=== PATIENT | male | born 1965 | race Caucasian/White ===

== ENCOUNTER 2021-11-27 16:06 | Emergency (ER) | payer OTHER ==
[2021-11-27] MEDS ORDERED: Zemuron 100 MG/10 ML IJ ONE (16:07)
[2021-11-27 16:20] VITALS: O2SAT 93
[2021-11-27 16:21] LABS: Lactic Acid 9.9 (0.4-2.0)
[2021-11-27 16:22] LABS: A-aADO2 511; ABG HEMOGLOBIN 15.5; ARTERIAL BLOOD GAS BASE EXCESS -15.8 (-2.0-2.0); ARTERIAL BLOOD GAS FIO2 100 %; ARTERIAL BLOOD GAS PO2 180 mmHg (75-100); ARTERIAL BLOOD GAS pH 7.28 (7.35-7.45); CARBOXYHEMOGLOBIN 1.2 % THgb (0.0-6.9); HCO3- 8.5 (22-28); HGB O2 SAT 97.8 g/dF (94-100); Methhemoglobin 0.9 % (1.4-1.5)
[2021-11-27 16:23] LABS: ABG POTASSIUM 6.2 (3.5-5.1); ABG SITE RIGHT RADIAL; ALLEN TEST OK? YES; ARTERIAL BLOOD GAS PCO2 18 mmHg (35-45)
[2021-11-27] MEDS ORDERED: Sodium Chloride 0.9% 1000 ML 1,000 ML ONE ×5 (16:30→19:54)
[2021-11-27 16:37] LABS: A-aADO2 -96; ABG HEMOGLOBIN 15.3; ARTERIAL BLOOD GAS BASE EXCESS -16.6 (-2.0-2.0); ARTERIAL BLOOD GAS FIO2 21 %; ARTERIAL BLOOD GAS PO2 226 mmHg (75-100); ARTERIAL BLOOD GAS pH 7.28 (7.35-7.45); CARBOXYHEMOGLOBIN 1.2 % THgb (0.0-6.9); Glucose,Critical Care 286 (70-110); HCO3- 7.5 (22-28); Methhemoglobin 0.7 % (1.4-1.5)
[2021-11-27 16:38] LABS: ABG POTASSIUM 6.1 (3.5-5.1); ABG SITE LEFT RADIAL; ALLEN TEST OK? YES; ARTERIAL BLOOD GAS PCO2 16 mmHg (35-45)
--- NOTE | 2021-11-27 16:40 | XRAY ---
Indication: Acute mental status change. Multiple bruising over body. No history available. Multiple contiguous axial images obtained through the chest without contrast. Comparison: None Study is degraded by respiration artifact throughout. Heart is not enlarged. Aorta is normal in course and caliber. [place] subcarinal and smaller left infrahilar calcified nodes. Lungs demonstrate moderate left and small right base effusions with compressive atelectasis. No suspicious pulmonary mass or pneumothorax. Bony thorax intact with moderate degenerative changes throughout the spine. Abdomen reported separately. Impression: 1. Diffuse respiration artifact. 2. Cardiomegaly and bilateral pleural effusions. Rule out cardiac decompensation/CHF. Superimposed pneumonia not completely excluded. 3. Incidental degenerative spondylosis and old granulomatous disease.
--- NOTE | 2021-11-27 16:42 | XRAY ---
Indication: Acute mental status change. Multiple bruising over body. No history available. Multiple contiguous axial images obtained through the head without contrast. Comparison: None Minimal beam artifact from cardiopulmonary technologist hands. Age-appropriate global atrophy. No acute intracranial hemorrhage, abnormal extra-axial fluid collection, or mass effect. Fourth ventricle is midline without hydrocephalus. Iqbal-white matter differentiation preserved. Bony calvarium intact.. Paranasal sinuses and mastoid air cells are clear. Impression: Negative CT head without contrast exam.
--- NOTE | 2021-11-27 16:44 | XRAY ---
Indication: Acute mental status change. Multiple bruising over body. No history available. Multiple contiguous axial images obtained through the cervical spine. Sagittal and coronal reformatted images obtained. Comparison: None Axial images negative for acute fracture, suspicious bony lesions, or spinal canal stenosis. Mild/moderate C5-C7 degenerative endplate spurring and mild/moderate multilevel bilateral degenerative facet hypertrophy right greater than left. Sagittal and coronal reformatted images demonstrates normal alignment. C5-C7 degenerative disc space loss. No acute compression fracture, subluxation, or jumped facet. Normal appearing craniocervical junction. Visualized noncontrasted soft tissues demonstrates minimal left carotid calcifications. CTA head and CT chest reported separately. Impression: 1. C5-C7 degenerative changes. 2. Remaining CT cervical spine is negative.
[2021-11-27] MEDS ORDERED: SUBLIMAZE 100 MCG/2 ML ONE ×2 (16:45→18:02)
--- NOTE | 2021-11-27 16:46 | XRAY ---
Indication: Acute mental status change. Multiple bruising over body. No history available. Multiple contiguous axial images obtained through the abdomen and pelvis without contrast. Comparison: None CT chest reported separately. Beam artifact from patient's arms and respiration artifact throughout. There is mild diffuse anasarca. Noncontrasted stomach and bowel loops appear nonobstructed. Urinary bladder near empty with [place] balloon catheter in situ. No free fluid/air. Incidental bilateral adrenal hypertrophy. Remaining liver, gallbladder, pancreas, spleen, adrenal glands, kidneys, ureters, bladder, and aorta are unremarkable for noncontrast exam. Osseous structures intact with mild degenerative changes throughout the spine. Incompletely visualized bilateral scrotal hydroceles. Impression: 1. Beam artifact and respiration artifact. 2. Diffuse anasarca presumed related to cardiac decompensation/CHF as reported on same day CT chest exam. 3. Incompletely visualized bilateral scrotal hydroceles. 4. Bilateral adrenal hypertrophy. 5. Remaining CT abdomen/pelvis without contrast exam is grossly negative.
[2021-11-27 16:59] LABS: Absolute Neutrophil Ct (ANC) 15.07 x10^3/uL (1.4-6.9); Basophil (Absolute #) 0.02 x10^3/uL (0-0.4); Eosinophil (Absolute #) 0 x10^3/uL (0-0.5); Hematocrit 46.4 % (42-50); Lymphocyte (Absolute #) 0.57 x10^3/uL (1.0-4.6); Lymphocytes % 3.5 % (24.0-44.0); Mean Cell Volume 89.7 fL (78-100); Mean Corpuscular Hgb Concent. 32.3 g/dL (32-36); Monocyte (Absolute #) 0.54 x10^3/uL (0.0-1.3); Monocytes % 3.3 % (0.0-12.0); Neutrophil % 92.7 % (36.0-66.0); Platelet Count 69 x10^3/uL (150-450); Red Blood Count 5.17 x10^6/uL (4.1-5.6); Red Cell Distribution Width 15.5 % (11.5-14.0); White Blood Count 16.3 x10^3/uL (4.0-10.5)
[2021-11-27] MEDS ORDERED: VERSED 5 MG/5 ML ONE (17:00)
[2021-11-27] MEDS ORDERED: Amidate 20 MG/10 ML IV ONE (17:00)
--- NOTE | 2021-11-27 17:02 | XRAY ---
Indication: Endotracheal tube placement. Comparison: None Limited portable chest demonstrates endotracheal tube tip [address] proven cardiomegaly and bilateral effusions/atelectasis left greater than right.
[2021-11-27 17:12] LABS: ACETAMINOPHEN < 10 ug/ml (10-30); ETHYL ALCOHOL < 10 mg/dL (0-10); SALICYLATE 1.8 mg/dL (2-20)
[2021-11-27 17:14] LABS: ALBUMIN 3.1 g/dL (3.5-5.0); ANION GAP 36.4 MEQ/L (5-15); Calcium 6.7 mg/dL (8.4-10.2); Total Protein 5.9 g/dL (6.3-8.2)
[2021-11-27 17:19] LABS: Potassium 5.9 mmol/L (3.5-5.1)
[2021-11-27 17:19] LABS: A-aADO2 157; ABG HEMOGLOBIN 14.6; ABG POTASSIUM 5.7 (3.5-5.1); ABG SITE RIGHT RADIAL; ALLEN TEST OK? YES; ARTERIAL BLD GAS TIDAL VOLUME 550 cc; ARTERIAL BLOOD GAS BASE EXCESS -17.4 (-2.0-2.0); ARTERIAL BLOOD GAS FIO2 60 %; ARTERIAL BLOOD GAS PCO2 20 mmHg (35-45); ARTERIAL BLOOD GAS PO2 246 mmHg (75-100); ARTERIAL BLOOD GAS pH 7.22 (7.35-7.45); CARBOXYHEMOGLOBIN 1.1 % THgb (0.0-6.9); HCO3- 8.2 (22-28); HGB O2 SAT 98.2 g/dF (94-100); Methhemoglobin 0.8 % (1.4-1.5)
[2021-11-27] MEDS ORDERED: Sodium Chloride 100ML MINI-BAG PLUS 100 ML IV ONE (17:32)
[2021-11-27] MEDS ORDERED: Merrem IV ONE (17:32)
[2021-11-27 17:39] LABS: Creatinine 1 7.38 mg/dL (0.66-1.25); EST GLOMERULAR FILTRATION RATE 8.1 ML/MIN
[2021-11-27] MEDS: Merrem 1 GM in Sodium Chloride 100ML MINI-BAG PLUS 100 ML IV ONE (17:39)
[2021-11-27 18:12] LABS: Mucus SLIGHT /HPF (NEGATIVE)
[2021-11-27 18:13] LABS: Appearance CLEAR (CLEAR); Bilirubin NEGATIVE (NEGATIVE); Dipstick done @ ? MAIN LAB; Glucose NEGATIVE (NEGATIVE); Ketones NEGATIVE (NEGATIVE); Nitrite NEGATIVE (NEGATIVE); Protein,Urine Dip 100 (Negative); RBC TRACE-INTACT Ery/ul (0-5); Specific Gravity >=1.030 (1.005-1.025); Urobilinogen 0.2 mg/dL (0-1)
[2021-11-27 18:14] LABS: Urine Cultured Indicated? NO
[2021-11-27 18:19] LABS: Barbiturate,Urine NEGATIVE (NEGATIVE); Benzodiazepine,Urine NEGATIVE (NEGATIVE); Methadone,Urine NEGATIVE (NEGATIVE); Opiate,Urine NEGATIVE (NEGATIVE); PCP,Urine NEGATIVE (NEGATIVE); THC,Urine POSITIVE (NEGATIVE)
[2021-11-27] MEDS ORDERED: VANCOMYCIN 1 GRAM/200 ML BAG 1 GM/200 ML PIGGYBACK IV ONE (18:25)
[2021-11-27] MEDS: VANCOMYCIN 1 GRAM/200 ML BAG 1 GM/200 ML PIGGYBACK IV ONE (18:25)
[2021-11-27 18:26] LABS: INFLUENZA A NEGATIVE (NEGATIVE); INFLUENZA B NEGATIVE (NEGATIVE); RESPIRATORY SYNCTIAL VIRUS NEGATIVE (Negative); SARS-CoV-2 Xpert Express NEGATIVE (NEGATIVE)
[2021-11-27 18:54] LABS: Amphetamine,Urine POSITIVE (NEGATIVE)
[2021-11-27 18:55] LABS: A-aADO2 269; ABG HEMOGLOBIN 14.3; ABG POTASSIUM 5.8 (3.5-5.1); ABG SITE LEFT BRACHIAL; ARTERIAL BLD GAS O2 SATURATION 97.1 % (95-100); ARTERIAL BLD GAS TIDAL VOLUME 550 cc; ARTERIAL BLOOD GAS BASE EXCESS -19.4 (-2.0-2.0); ARTERIAL BLOOD GAS FIO2 60 %; ARTERIAL BLOOD GAS PCO2 45 mmHg (35-45); ARTERIAL BLOOD GAS PO2 103 mmHg (75-100); ARTERIAL BLOOD GAS VENT MODE A/C; ARTERIAL BLOOD GAS pH 7.01 (7.35-7.45); CARBOXYHEMOGLOBIN 1.7 % THgb (0.0-6.9); HCO3- 11.4 (22-28); HGB O2 SAT 95.3 g/dF (94-100); Methhemoglobin 0.1 % (1.4-1.5)
--- NOTE | 2021-11-27 18:59 | ERPHSYRPT ---
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 Marijuana (THC) (NEGATIVE) Ethyl Alcohol (0-10) mg/dL Influenza Type A Ag (NEGATIVE) Influenza Type B Ag (NEGATIVE) RSV (PCR) (Negative) SARS-CoV-2 (PCR) (NEGATIVE) - Progress Progress Note: 11/27/21 19:[address] Penaloza at [facility] after initially talking to Dr. Matt/hospitalist/[employer]. 11/28/21 01:48 Pt extremely critical due to renal failure/hepatic failure/sepsis due to po ssible pneumonia or occult source/rhabdomyolosis/CHF/possible VT/Substance abuse. Pt received 3L NS bolus for sepsis protocol/renal failure/rhabdomyolosis BP started to drop and became minimally responsive to crystalloid therapy,so Levafed drip started. Pt's status started to decline before transfer, but treatment maxed out at [place], so pt transferred to [facility] for more specialized care which included dialysis. Family was alerted that pt was critical during entire stay and again before transfer with a high possibility of demise. They acknowledged that pt has multiple medical problems due to CHF/HTN/polysubstance abuse/neglect and would not be surprised if he did . Brother/daughter stated that pt has given up and has stated that he wanted to recently. Family still wanted resu scitation effort continued. Pt on Levofed drip w fluid bolus running at time of transfer. Carotid/Radial pulse palpable before transfer. 2amps NaHCO3 before transfer. Counseled pt/family regarding: lab results, diagnosis, rad results - Departure Departure Disposition: Transfer Clinical Impression: Renal failure, Sepsis, Hepatic failure, Rhabdomyolysis, Pneumonia, Elevated troponin, Substance abuse, Hypothermia Condition: Critical Critical Care Time: Yes Critical Care Time(excluding separately billable procedures): Critcal > 194 mins Referrals: RITA IVERSON NUTRITION EDUCATOR [Primary Care Provider] - Follow up/PCP as directed
[2021-11-27] MEDS ORDERED: SODIUM BICARBONATE 50 MEQ/50 ML ABBOJECT IV ONE (19:19)
[2021-11-27] MEDS: SODIUM BICARBONATE 50 MEQ/50 ML ABBOJECT IV ONE (19:22)
[2021-11-27] MEDS ORDERED: NOREPINEPHRINE 8 MG/250 ML-D5W 8 MG/250 ML PLAST..BAG IV ONE (19:54)
[2021-11-27] MEDS: NOREPINEPHRINE 8 MG/250 ML-D5W 8 MG/250 ML PLAST..BAG IV PRN (19:56)
[2021-11-27 20:33] VITALS: BP 64/32; PULSE 62
== END 2021-11-27 20:10 | disposition short-term general hospital (02) ==
LOC: ED 16:06 → EDBD 16:06 → ED 20:10
DX: A41.9 Sepsis, unspecified organism (principal); M62.82 Rhabdomyolysis; J18.9 Pneumonia, unspecified organism; R65.20 Severe sepsis without septic shock; K72.01 Acute and subacute hepatic failure with coma; N17.9 Acute kidney failure, unspecified; R77.8 Other specified abnormalities of plasma proteins; F19.10 Other psychoactive substance abuse, uncomplicated
CPT/HCPCS: 0241U; 31500; 36000; 36415; 36600; 51702; 70450; 71045; 71250; 72125; 74176; 80053; 80307; 81015; 82375; 82550; 82803; 82947; 83605; 83880; 84484; 85025; 87040; 94002; 94799; 96365; 96367; 96374; 96375; 96376; 99285; 99291; 99292; G0480; J2250; J3010; J3370